=== PATIENT | female | born 1935 | race Caucasian/White ===

== ENCOUNTER 2018-10-17 21:02 | Observation (INO) ==
[2018-10-17] MEDS ORDERED: KETOROLAC 30 MG/1 ML VIAL IV STA (21:35)
[2018-10-17 22:22] LABS: Basophils # 0.1 10*3/uL (0.0-0.2); Basophils % 0.8 % (0.0-0.8); Eosinophils # 0.2 10*3/uL (0.0-0.87); Eosinophils % 2.7 % (0.00-10.9); Hematocrit 39.2 VOL% (35.7-47.0); Hemoglobin 12.8 GM/DL (12.0-16.0); Immature Granulocytes % 0.3 %; Immature Granulocytes Absolute 0.02 #; Lymphocytes # 2.7 10*3/uL (1.4-4.0); Mean Corpuscular HGB Conc 32.7 GM/DL (32-36); Mean Corpuscular Hemoglobin 30 PG (27-34); Mean Corpuscular Volume 92.7 FL (87-102); Mean Platelet Volume 10.2 FL (9.6-12.0); Monocytes # 0.8 10*3/uL (0.11-0.8); Monocytes % 12.8 % (1.7-12.7); Neutrophils # 2.6 10*3/uL (1.4-7.4); Neutrophils % 41.4 % (38.7-73.9); Platelet Count 226 T/CUMM (130-400); Red Blood Count 4.23 MC/CUMM (3.8-5.5); Red Cell Distribution Width 13.2 % (9.3-17.3); White Blood Count 6.3 T/CUMM (4-12)
[2018-10-17 22:47] LABS: Alanine Aminotransferase 17 U/L (13-56); Albumin 3.9 G/DL (3.4-5.0); Alkaline Phosphatase 94 U/L (45-117); Aspartate Amino Transferase 14 U/L (0-37); Bilirubin,Total < 0.39 MG/DL (0.2-1.0); Blood Urea Nitrogen 18 MG/DL (7-18); Calcium 9.9 MG/DL (8.5-10.1); Glucose 123 MG/DL (74-106); Osmolality,Calculated 275.8 MOS/KG (273-304); Potassium 4.5 MMOL/L (3.5-5.1); Sodium 137 MMOL/L (136-145); Total Protein 6.6 G/DL (6.4-8.3)
[2018-10-18] MEDS ORDERED: MELOXICAM 7.5 MG TABLET PO PRN (05:50)
[2018-10-18] MEDS ORDERED: FUROSEMIDE 40 MG TABLET PO PRN (05:50)
[2018-10-18] MEDS: LEVOTHYROXINE 100 MCG TABLET PO SCH (06:20)
[2018-10-18] MEDS ORDERED: Mesalamine [Apriso] 1.5 GM PO SCH (09:00)
[2018-10-18 11:25] LABS: Risk Ratio 5.67; VLDL CHOLESTEROL 35.8 MG/DL
[2018-10-18] MEDS ORDERED: ASPIRIN CHEW 81 MG TABLET PO ONE (12:25)
[2018-10-18] MEDS ORDERED: ENOXAPARIN 80 MG/0.8 ML SYRINGE SUBCUT ONE (12:26)
[2018-10-18] MEDS ORDERED: POTASSIUM CHLORIDE RIDER 10 MEQ in PREMIX 1 EACH IV PRN (12:26)
[2018-10-18] MEDS ORDERED: MAGNESIUM SULF RIDER 2 GM in PREMIX 1 EACH IV PRN (12:26)
[2018-10-18] MEDS ORDERED: DIAZEPAM 5 MG TABLET PO ONE (12:30)
[2018-10-18] MEDS ORDERED: diphenhydrAMINE CAP 25 MG CAPSULE PO ONE (12:30)
[2018-10-18] MEDS ORDERED: SODIUM CHLORIDE 0.45% 1,000 ML IV SCH (12:30)
[2018-10-18] MEDS: POLYETHYLENE GLYCOL POWDER 17 GM PACK PO SCH (12:56)
[2018-10-18] MEDS: PSYLLIUM POWDER 3.7 GM/PACK PO SCH (12:56)
[2018-10-18] MEDS: ASPIRIN EC 81 MG TABLET PO SCH (13:11)
[2018-10-18] MEDS: LISINOPRIL 10 MG TABLET PO SCH (13:11)
[2018-10-18] MEDS: amLODIPine 2.5 MG TABLET PO SCH (13:12)
[2018-10-18] MEDS: PANTOPRAZOLE 40 MG TABLET PO SCH ×2 (13:12→21:13)
[2018-10-18] MEDS ORDERED: LIDOCAINE 1% 20 ML VIAL ONE (14:17)
[2018-10-18] MEDS ORDERED: fentaNYL 100 MCG/2 ML VIAL ONE (14:20)
[2018-10-18] MEDS ORDERED: MIDAZOLAM 2 MG/2 ML VIAL ONE (14:20)
[2018-10-18] MEDS ORDERED: ONDANSETRON 4 MG/2 ML VIAL IV PRN (15:25)
[2018-10-18] MEDS: GABAPENTIN 100 MG CAPSULE PO SCH ×2 (16:01→21:13)
[2018-10-18] MEDS: HYOSCYAMINE 0.125 MG TABLET SL SCH ×2 (16:01→21:13)
[2018-10-18] MEDS ORDERED: ROSUVASTATIN 20 MG TABLET PO SCH (21:00)
[2018-10-18] MEDS: LORazepam 1 MG TABLET PO SCH (21:12)
[2018-10-18] MEDS: ACETAMINOPHEN 325 MG TABLET PO SCH (21:13)
[2018-10-19 05:10] LABS: Basophils # 0.1 10*3/uL (0.0-0.2); Eosinophils # 0.1 10*3/uL (0.0-0.87); Eosinophils % 2.8 % (0.00-10.9); Hematocrit 38.9 VOL% (35.7-47.0); Hemoglobin 12.6 GM/DL (12.0-16.0); Immature Granulocytes % 0.4 %; Immature Granulocytes Absolute 0.02 #; Lymphocytes # 1.5 10*3/uL (1.4-4.0); Lymphocytes % 30.6 % (21.3-54.2); Mean Corpuscular HGB Conc 32.4 GM/DL (32-36); Mean Corpuscular Hemoglobin 31 PG (27-34); Mean Corpuscular Volume 94.2 FL (87-102); Mean Platelet Volume 10.5 FL (9.6-12.0); Monocytes # 0.6 10*3/uL (0.11-0.8); Monocytes % 12.8 % (1.7-12.7); Neutrophils # 2.6 10*3/uL (1.4-7.4); Neutrophils % 52.4 % (38.7-73.9); Platelet Count 220 T/CUMM (130-400); Red Blood Count 4.13 MC/CUMM (3.8-5.5); Red Cell Distribution Width 13.2 % (9.3-17.3)
[2018-10-19 05:19] LABS: Calcium 9.2 MG/DL (8.5-10.1); Osmolality,Calculated 276.5 MOS/KG (273-304); Potassium 4.3 MMOL/L (3.5-5.1)
[2018-10-19 05:22] LABS: Calcium 9.5 MG/DL (8.5-10.1); Osmolality,Calculated 275.7 MOS/KG (273-304); Potassium 4.3 MMOL/L (3.5-5.1)
[2018-10-19] MEDS: LEVOTHYROXINE 100 MCG TABLET PO SCH (06:14)
[2018-10-19] MEDS: PANTOPRAZOLE 40 MG TABLET PO SCH ×2 (08:34→21:00)
[2018-10-19] MEDS: ACETAMINOPHEN 325 MG TABLET PO SCH ×2 (08:34→22:36)
[2018-10-19] MEDS: HYOSCYAMINE 0.125 MG TABLET SL SCH (08:34)
[2018-10-19] MEDS: GABAPENTIN 100 MG CAPSULE PO SCH ×3 (08:34→21:00)
[2018-10-19] MEDS: POLYETHYLENE GLYCOL POWDER 17 GM PACK PO SCH (08:35)
[2018-10-19] MEDS: amLODIPine 2.5 MG TABLET PO SCH (08:35)
[2018-10-19] MEDS: PSYLLIUM POWDER 3.7 GM/PACK PO SCH (08:35)
[2018-10-19] MEDS: ASPIRIN EC 81 MG TABLET PO SCH (08:35)
[2018-10-19] MEDS: LISINOPRIL 10 MG TABLET PO SCH (08:36)
[2018-10-19] MEDS: SODIUM CHLORIDE 0.9% 1,000 ML IV SCH ×2 (11:02→22:35)
[2018-10-19] MEDS ORDERED: ROSUVASTATIN 10 MG TABLET PO SCH (21:00)
[2018-10-19] MEDS: LORazepam 1 MG TABLET PO SCH (21:00)
[2018-10-20 04:26] LABS: Basophils % 0.8 % (0.0-0.8); Eosinophils # 0.2 10*3/uL (0.0-0.87); Eosinophils % 3.1 % (0.00-10.9); Hematocrit 34.8 VOL% (35.7-47.0); Hemoglobin 11.1 GM/DL (12.0-16.0); Immature Granulocytes % 0.4 %; Immature Granulocytes Absolute 0.02 #; Lymphocytes # 1.6 10*3/uL (1.4-4.0); Lymphocytes % 31.6 % (21.3-54.2); Mean Corpuscular HGB Conc 31.9 GM/DL (32-36); Mean Corpuscular Hemoglobin 30 PG (27-34); Mean Corpuscular Volume 94.3 FL (87-102); Mean Platelet Volume 10.1 FL (9.6-12.0); Monocytes # 0.6 10*3/uL (0.11-0.8); Monocytes % 11.6 % (1.7-12.7); Neutrophils # 2.7 10*3/uL (1.4-7.4); Neutrophils % 52.5 % (38.7-73.9); Platelet Count 182 T/CUMM (130-400); Red Blood Count 3.69 MC/CUMM (3.8-5.5); Red Cell Distribution Width 12.9 % (9.3-17.3); White Blood Count 5.1 T/CUMM (4-12)
[2018-10-20 05:09] LABS: Calcium 8.8 MG/DL (8.5-10.1); Osmolality,Calculated 287.8 MOS/KG (273-304)
[2018-10-20] MEDS: SODIUM CHLORIDE 0.9% 1,000 ML IV SCH (07:12)
[2018-10-20] MEDS: amLODIPine 2.5 MG TABLET PO SCH (08:31)
[2018-10-20] MEDS: POLYETHYLENE GLYCOL POWDER 17 GM PACK PO SCH (08:31)
[2018-10-20] MEDS: ACETAMINOPHEN 325 MG TABLET PO SCH (08:32)
[2018-10-20] MEDS: LEVOTHYROXINE 100 MCG TABLET PO SCH (08:32)
[2018-10-20] MEDS: PANTOPRAZOLE 40 MG TABLET PO SCH (08:32)
[2018-10-20] MEDS: GABAPENTIN 100 MG CAPSULE PO SCH ×2 (08:33→14:46)
[2018-10-20] MEDS: LISINOPRIL 10 MG TABLET PO SCH (08:33)
[2018-10-20] MEDS: ASPIRIN EC 81 MG TABLET PO SCH (08:33)
[2018-10-20] MEDS: PSYLLIUM POWDER 3.7 GM/PACK PO SCH (08:34)
[2018-10-20] MEDS ORDERED: traMADol 50 MG TABLET PO SCH (14:30)
[2018-10-20 16:04] VITALS: BP 127/61
== END 2018-10-20 16:40 | disposition home or self-care (01) ==
LOC: N.EDINP 21:02 → N.ED 21:02 → N.TELEN 10-18 00:14
PROVIDERS: ADMIT Family Medicine; ATTEND Family Medicine
PROC: CLCCHCL (ICD-10-PCS; 2018-10-18 15:15)